=== PATIENT | female | born 1970 | race Two or more races ===

== ENCOUNTER 2016-10-24 22:41 | Emergency (ER) | payer OTHER ==
--- NOTE | 2016-10-24 22:45 | ED Physician Chart ---
Chief Complaint/HPI - Patient Information Date Seen:: 10/24/16 Time Seen:: 22:45 Chief Complaint:: chest pain History of Present Illness:: 46-year-old female history of hypertension, complains of acute, severe, 10 out of 10, left and right-sided chest pain that started about 9 PM tonight after she was discussing her divorce with her soon-to-be ex-. Has associated shortness of breath. Historian:: Patient, Family Member (daughter) Review:: Nurse's Note Reviewed Review of Systems - Review of Systems Other: Complete system review otherwise unremarkable except as noted in HPI. Past Medical History - Past Medical History Past Medical History: HTN, DM, Other (TIA) Social History: Non Smoker, Alcohol, No Drug Use, Employed Surgical History: None Psychiatricy History: None Medication: Reviewed Family Medical History - Family Member Mother History Unknown: Yes Ethnicity: Physical Exam - Physical Examination Other:: INITIAL VITAL SIGNS: Reviewed by me GENERAL: Alert and interactive. He shouldn't moderate distress due to pain. HEAD: Head is normocephalic and atraumatic EYES: EOMI. . No scleral icterus. No conjunctival injection ENT: Moist mucous membranes. NECK: Supple. No masses. Full range of motion RESPIRATORY: No tachypnea. Clear breath sounds bilaterally but shallow breathing. No wheezing, rales, or rhonchi CV: Regular rate and rhythm. No murmurs, rubs, or gallops ABDOMEN: Soft, non-distended, non-tender. No guarding. No rebound. No masses. EXTREMITIES: No deformity. No cyanosis. No edema. SKIN: Warm and dry. No obvious rashes. NEUROLOGIC: Alert and oriented. Face is symmetric. Speech is normal. Moves all extremities equally. Motor and sensory distally intact. Labs/Radiology/EKG Results - Lab Results Results: Lab Results 10/24/16 10/24/16 10/24/16 Range/Units 22:55 22:55 22:55 WBC 8.2 (4.8-10.8) Th/cmm RBC 4.33 (3.80-5.10) Mil/cmm Hgb 12.6 (11.7-15.5) gm/dL Hct 38.0 (35.0-45.0) % MCV 87.8 (81-100) fl MCH 29.2 (27.0-31.0) pg MCHC Differential 33.3 (28.0-36.0) pg RDW 12.2 (11.5-20.0) % Plt Count 269 (150-400) Th/cmm MPV 9.3 fl Neutrophils % 64.4 (40.0-80.0) % Lymphocytes % 28.9 (20.0-50.0) % Monocytes % 5.4 (2.0-10.0) % Eosinophils % 0.9 (0.0-5.0) % Basophils % 0.4 (0.0-2.0) % PT 9.7 (9.5-11.5) SECONDS INR 0.93 (0.5-1.4) Sodium 139 (136-145) mEq/L Potassium 3.9 (3.5-5.1) mEq/L Chloride 106 (98-107) mEq/L Carbon Dioxide 24.4 (21.0-31.0) mEq/L Anion Gap 12.5 (7.0-16.0) BUN 12 (7-25) mg/dL Creatinine 0.6 (0.6-1.2) mg/dL Est GFR ( Amer) > 60.0 (>90) ml/min Est GFR (Non-Af Amer) > 60.0 ml/min BUN/Creatinine Ratio 20.0 Glucose 128 H (70-105) mg/dL Calcium 10.0 (8.6-10.3) mg/dL Total Bilirubin 0.7 (0.3-1.0) mg/dL AST 26 (13-39) U/L ALT 30 (7-52) U/L Alkaline Phosphatase 71 (34-104) U/L Creatine Kinase 71 (30-223) U/L Troponin I (0.01-0.05) ng/mL Total Protein 8.6 H (6.0-8.3) gm/dL Albumin 4.8 (3.7-5.3) gm/dL Globulin 3.8 gm/dL Albumin/Globulin Ratio 1.3 (1.0-1.8) Triglycerides 78 (<150) mg/dL Cholesterol 168 (<200) mg/dL LDL Cholesterol Direct 94 (75-193) mg/dL HDL Cholesterol 68 (23-92) mg/dL 03/07/17 Range/Units 22:55 WBC (4.8-10.8) Th/cmm RBC (3.80-5.10) Mil/cmm Hgb (11.7-15.5) gm/dL Hct (35.0-45.0) % MCV (81-100) fl MCH (27.0-31.0) pg MCHC Differential (28.0-36.0) pg RDW (11.5-20.0) % Plt Count (150-400) Th/cmm MPV fl Neutrophils % (40.0-80.0) % Lymphocytes % (20.0-50.0) % Monocytes % (2.0-10.0) % Eosinophils % (0.0-5.0) % Basophils % (0.0-2.0) % PT (9.5-11.5) SECONDS INR (0.5-1.4) Sodium (136-145) mEq/L Potassium (3.5-5.1) mEq/L Chloride (98-107) mEq/L Carbon Dioxide (21.0-31.0) mEq/L Anion Gap (7.0-16.0) BUN (7-25) mg/dL Creatinine (0.6-1.2) mg/dL Est GFR ( Amer) (>90) ml/min Est GFR (Non-Af Amer) ml/min BUN/Creatinine Ratio Glucose (70-105) mg/dL Calcium (8.6-10.3) mg/dL Total Bilirubin (0.3-1.0) mg/dL AST (13-39) U/L ALT (7-52) U/L Alkaline Phosphatase (34-104) U/L Creatine Kinase (30-223) U/L Troponin I 0.01 (0.01-0.05) ng/mL Total Protein (6.0-8.3) gm/dL Albumin (3.7-5.3) gm/dL Globulin gm/dL Albumin/Globulin Ratio (1.0-1.8) Triglycerides (<150) mg/dL Cholesterol (<200) mg/dL LDL Cholesterol Direct (75-193) mg/dL HDL Cholesterol (23-92) mg/dL - Radiology Results Results: Single AP VIEW Portable Chest X-ray was interpreted independently and contemporaneously by Zay Handley MD: No cardiomegaly Normal mediastinum No lung infiltrates No pneumothorax No soft tissue or bony abnormalities - EKG Interpretations Comments:: 12-lead EKG Interpretation by Zay Handley MD: Sinus tachycardia with ventricular rate of 107 beats per minute Normal axis Normal intervals No acute ST or T wave changes. No obvious STEMI ED Septic Shock - . Is Septic Shock (SBP<90, OR Lactate>4 mmol\L) present?: No Reassessment (Disposition) - Reassessment Reassessment:: Patient arrived in severe distress. Appears all of her symptoms were due to severe emotional distress and acute anxiety. Rubs are all essentially unremarkable. EKG showed some sinus tachycardia but otherwise no acute findings. Patient received 2 mg of IV Ativan and 30 mg IV Toradol. Symptoms were totally resolved. She was much more relaxed and calm. Recommend follow- up PCP 1-2 days. Gave return to ER precautions. Patient understands and agrees with the plan. - Diagnosis Diagnosis:: Acute anxiety Hypertension - Aftercare/Follow up Instructions Aftercare/Follow-Up Instructions:: Counseled pt regarding lab results/diagnosis & need follow up, Refer to Discharge Instructions - Patient Disposition Discharge/Transfer:: Home Time:: 23:43 Condition at Disposition:: Improved ED Discharge Plan - Patient Disposition Admit/Discharge/Transfer: PT DISCHARGED HOME Condition at Disposition: Improved Instructions: Anxiety and Panic Attacks, [id number]
[2016-10-24] MEDS ORDERED: Sodium Chloride 0.9% 1,000 ML IV ONE (22:48)
[2016-10-24 23:09] LABS: % BASOPHILS 0.4 % (0.0-2.0); % EOSINOPHILS 0.9 % (0.0-5.0); % LYMPHOCYTES 28.9 % (20.0-50.0); % MONOCYTES 5.4 % (2.0-10.0); % NEUTROPHILS 64.4 % (40.0-80.0); HEMOGLOBIN 12.6 gm/dL (11.7-15.5); MEAN CELL VOLUME 87.8 fl (81-100); MEAN CORPUSCULAR HEMOGLOBIN 29.2 pg (27.0-31.0); MEAN CORPUSCULAR HGB CONC 33.3 pg (28.0-36.0); MEAN PLATELET VOLUME 9.3 fl; NEUTROPHILE ABSOLUTE 5.3 Th/cmm (1.8-8.0); PLATELET COUNT 269 Th/cmm (150-400); RED BLOOD COUNT 4.33 Mil/cmm (3.80-5.10); RED CELL DISTRIBUTION WIDTH 12.2 % (11.5-20.0); WHITE BLOOD COUNT 8.2 Th/cmm (4.8-10.8)
[2016-10-24] MEDS ORDERED: Prochlorperazine 5 mg/mL 2mL Vial ONE (23:24)
[2016-10-24 23:25] LABS: INR 0.93 (0.5-1.4); PROTHROMBIN TIME (TEST) 9.7 SECONDS (9.5-11.5)
[2016-10-24] MEDS: Prochlorperazine 5 mg/mL 2mL Vial IVP STA ×2 (23:29→23:36)
[2016-10-24 23:32] LABS: TROP I 0.01 ng/mL (0.01-0.05)
[2016-10-24 23:34] LABS: ALB/GLOB RATIO 1.3 (1.0-1.8); ALKALINE PHOSPHATASE 71 U/L (34-104); ANION GAP 12.5 (7.0-16.0); BILIRUBIN,TOTAL 0.7 mg/dL (0.3-1.0); BUN - UREA NITROGEN 12 mg/dL (7-25); CARBON DIOXIDE 24.4 mEq/L (21.0-31.0); CHLORIDE 106 mEq/L (98-107); CHOLESTEROL 168 mg/dL (<200); CREATININE - SERUM 0.6 mg/dL (0.6-1.2); GLUCOSE 128 mg/dL (70-105); POTASSIUM SERUM 3.9 mEq/L (3.5-5.1); SGOT 26 U/L (13-39); SGPT/ALT 30 U/L (7-52); SODIUM SERUM 139 mEq/L (136-145); TRIGLYCERIDES 78 mg/dL (<150)
[2016-10-24 23:48] LABS: BNP 7.1 pg/mL (5.0-100.0)
--- NOTE | 2016-10-25 09:15 | Diagnostic Imaging Report ---
CHEST X-RAY: AP view INDICATION: pain COMPARISON: None FINDINGS: There is no focal consolidation or pleural effusions The heart is normal in size. Degenerative changes of the spine are noted. Nonspecific gas-filled loops of bowel are seen along the upper abdomen. IMPRESSION: No acute cardiopulmonary disease.
== END 2016-10-25 00:20 | disposition home or self-care (01) ==
LOC: ER 22:41
DX: I10 Essential (primary) hypertension (principal); F41.9 Anxiety disorder, unspecified; E11.9 Type 2 diabetes mellitus without complications; Z86.73 Personal history of transient ischemic attack (TIA), and cerebral infarction without residual deficits
CPT/HCPCS: 99285; 96374; 96375; 93005; 71010; 84484; 83880; 36415; 85379; 85025; 85610; 82550; 80053; 80061; J1885; J2060; J0780; J7030